=== PATIENT | female | born 1960 | race Two or more races ===

== ENCOUNTER 2021-03-28 12:59 | Emergency (ER) | payer MEDICAID, OTHER ==
[~2021-03-28] VITALS: Ht 154.9 cm; Wt 77.1 kg
[2021-03-28 13:28] VITALS: BP 172/89
[2021-03-28] MEDS ORDERED: IBUPROFEN 800 MG TAB PO ONE (13:45)
[2021-03-28] MEDS ORDERED: cefTRIAXone SOD 1,000 MG VL IM ONE (13:45)
== END 2021-03-28 14:17 | disposition home or self-care (01) ==
LOC: ER 12:59
DX: N76.4 Abscess of vulva (principal); I10 Essential (primary) hypertension
CPT/HCPCS: 96372; 99283; J0696